=== PATIENT | female | born 1935 | race Caucasian/White ===

== ENCOUNTER → 2018-02-22 | Outpatient (REF) | payer MEDICARE, OTHER ==
[~2018-02-22] MED LIST: ACTONEL35 MG PO; ALENDRONATE70 MG PO; ASPIRIN LOW DOS81 M2 PO; CELEBREX200 MG PO; CYMBALTA30 MG PO; DYAZIDE1 CAP OR; DYAZIDE1 CAP PO; FLEXERIL OR; LIPITOR10 MG PO; NEXIUM10 MG PO; PERCOCET 5/325M1 TAB PO; SYNTHROID PO; SYNTHROID100 MCG PO; TENORMIN PO; TRIAM/HCTZ1 CAP PO
[2018-02-22 07:57] LABS: ALBUMIN 3.2 g/dL (3.2-5.0); ALKALINE PHOSPHATASE 129 u/l (38-126); ANION GAP 13 (6-22 (CALC)); BILIRUBIN, TOTAL 0.3 mg/dL (0.0-1.4); BUN 21 mg/dL (8-23); BUN/CREATININE RATIO 27 (12-20 (CALC)); CARBON DIOXIDE 27 mmol/l (22-30); CHLORIDE 108 mmol/l (95-108); CREATININE 0.8 mg/dL (0.5-1.0); GFR > 60 ML/MIN (>=60 (CALC)); GFR FOR AFR.AMER. > 60 ML/MIN (>=60 (CALC)); POTASSIUM 4.7 mmol/l (3.5-5.1); SGOT/AST 14 u/l (9-36); SODIUM 143 mmol/l (137-146); TOTAL PROTEIN 6.3 g/dL (6.3-8.2)
[2018-02-22 08:11] LABS: HEMATOCRIT 35.6 % (37.0-47.0); HEMOGLOBIN 10.9 g/dl (12.0-16.0); MEAN CELL VOLUME 88.6 fL CALC (80.0-100.0); MEAN CORPUSCULAR HGB 27.1 pG CALC (26.0-32.0); MEAN CORPUSCULAR HGB CONC 30.6 g/L CALC (32.0-36.0); RED BLOOD COUNT 4.02 mill/uL (4.20-5.60); RED CELL DISTRI WIDTH 15.4 % (11.5-15.5)
== END | disposition home or self-care (01) ==
LOC: CT 07:05
PROVIDERS: Internal Medicine; ATTEND Obstetrics & Gynecology
DX: N82.3 Fistula of vagina to large intestine (principal); M86.671 Other chronic osteomyelitis, right ankle and foot; L84 Corns and callosities; N28.9 Disorder of kidney and ureter, unspecified; R10.9 Unspecified abdominal pain; D63.8 Anemia in other chronic diseases classified elsewhere; R73.9 Hyperglycemia, unspecified

== ENCOUNTER 2018-03-29 05:36 | Observation (INO) | payer MEDICARE, OTHER ==
[~2018-03-29] VITALS: Ht 167.6 cm; Wt 90.7 kg
[2018-03-29] VITALS (11 sets, daily range): BP systolic 74–146; BP diastolic 16–69
[~2018-03-29 05:36] MED LIST changes: +AMOXICILLIN250 M1 PO; +DILAUDID4 MG PO; -LIPITOR10 MG PO; +LIPITOR20 MG PO; +MELOXICAM15 MG PO
[2018-03-29 14:19] LABS: HEMATOCRIT 29.2 % (37.0-47.0); HEMOGLOBIN 8.9 g/dl (12.0-16.0); IMMATURE GRANULOCYTES 0.2 % (0.0-5.0); MEAN CELL VOLUME 88.2 fL CALC (80.0-100.0); MEAN CORPUSCULAR HGB 26.9 pG CALC (26.0-32.0); MEAN CORPUSCULAR HGB CONC 30.5 g/L CALC (32.0-36.0); NEUT# 4.11 thou/uL (2.00-7.15); RED BLOOD COUNT 3.31 mill/uL (4.20-5.60); RED CELL DISTRI WIDTH 17.5 % (11.5-15.5)
[2018-03-29 14:35] LABS: BILIRUBIN, TOTAL 0.3 mg/dL (0.0-1.4); BUN 12 mg/dL (8-23); BUN/CREATININE RATIO 15 (12-20 (CALC)); CARBON DIOXIDE 24 mmol/l (22-30); CHLORIDE 110 mmol/l (95-108); CREATININE 0.8 mg/dL (0.5-1.0); GFR > 60 ML/MIN (>=60 (CALC)); GFR FOR AFR.AMER. > 60 ML/MIN (>=60 (CALC)); SGOT/AST 17 u/l (9-36); SODIUM 143 mmol/l (137-146)
[2018-03-29 14:37] LABS: ALBUMIN 2.3 g/dL (3.2-5.0); ALKALINE PHOSPHATASE 51 u/l (38-126); ANION GAP 12 (6-22 (CALC)); TOTAL PROTEIN 4.7 g/dL (6.3-8.2)
[2018-03-30 05:09] VITALS: BP 134/79
[2018-03-30 05:33] LABS: HEMOGLOBIN 10.2 g/dl (12.0-16.0); IMMATURE GRANULOCYTES 0.4 % (0.0-5.0); MEAN CELL VOLUME 88.5 fL CALC (80.0-100.0); MEAN CORPUSCULAR HGB 27.3 pG CALC (26.0-32.0); MEAN CORPUSCULAR HGB CONC 30.9 g/L CALC (32.0-36.0); NEUT# 2.11 thou/uL (2.00-7.15); RED BLOOD COUNT 3.73 mill/uL (4.20-5.60); RED CELL DISTRI WIDTH 17.8 % (11.5-15.5)
[2018-03-30 05:39] LABS: ALBUMIN 2.4 g/dL (3.2-5.0); ALKALINE PHOSPHATASE 62 u/l (38-126); ANION GAP 10 (6-22 (CALC)); BILIRUBIN, TOTAL 0.4 mg/dL (0.0-1.4); BUN 10 mg/dL (8-23); BUN/CREATININE RATIO 13 (12-20 (CALC)); CARBON DIOXIDE 23 mmol/l (22-30); CHLORIDE 114 mmol/l (95-108); CREATININE 0.8 mg/dL (0.5-1.0); GFR > 60 ML/MIN (>=60 (CALC)); GFR FOR AFR.AMER. > 60 ML/MIN (>=60 (CALC)); MAGNESIUM 1.7 mg/dL (1.6-2.3); POTASSIUM 3.1 mmol/l (3.5-5.1); SGOT/AST 19 u/l (9-36); SODIUM 144 mmol/l (137-146)
[2018-03-30 08:00] VITALS: BP 162/84
== END 2018-03-30 14:57 | disposition home or self-care (01) ==
LOC: ENDO 05:36 → MS2 08:35 → ORM 12:00 → ENDO 12:00 → MS2 03-30 14:57
PROVIDERS: ADMIT Surgery; ATTEND Internal Medicine Nephrology
PROC: 0DJD8ZZ Inspection of Lower Intestinal Tract, Via Natural or Artificial Opening Endoscopic (ICD-10-PCS; principal; 2018-03-29)
DX: N82.3 Fistula of vagina to large intestine (principal); Q43.8 Other specified congenital malformations of intestine; K57.30 Diverticulosis of large intestine without perforation or abscess without bleeding; E86.0 Dehydration; I95.9 Hypotension, unspecified; E03.9 Hypothyroidism, unspecified; I10 Essential (primary) hypertension; E78.5 Hyperlipidemia, unspecified; K21.9 Gastro-esophageal reflux disease without esophagitis; F41.9 Anxiety disorder, unspecified; M19.90 Unspecified osteoarthritis, unspecified site; Z86.010 Personal history of colon polyps; Z90.710 Acquired absence of both cervix and uterus; Z80.0 Family history of malignant neoplasm of digestive organs
CPT/HCPCS: J1650

== ENCOUNTER 2018-05-01 14:07 | Emergency (ER) | payer MEDICARE, OTHER ==
[~2018-05-01] VITALS: Ht 167.6 cm; Wt 90.9 kg
[2018-05-01] MEDS ORDERED: ALENDRONATE70 MG PO (14:35)
[2018-05-01] MEDS ORDERED: ACETAMINOPHEN325 MG PO (14:35)
[2018-05-01] MEDS ORDERED: LEVEMIR100 UNIT/M (14:36)
[2018-05-01] MEDS ORDERED: LASIX 40 MG40 MG/TAB PO (14:36)
[2018-05-01] MEDS ORDERED: OMEPRAZOLE20 M2 PO (14:37)
[2018-05-01] MEDS ORDERED: PANTOPRAZOLE SO40 MG PO (14:38)
[2018-05-01] MEDS ORDERED: ELIQUIS5 MG PO (14:38)
[2018-05-01] MEDS ORDERED: MILK OF MAG30 ML/UDC PO (14:39)
[2018-05-01] MEDS ORDERED: PEPTO-BISM524 MG/30 PO (14:40)
[2018-05-01] MEDS ORDERED: ZOFRAN ODT4 MG PO (14:40)
[2018-05-01 15:21] LABS: HEMATOCRIT 32.4 % (37.0-47.0); IMMATURE GRANULOCYTES 0.2 % (0.0-5.0); MEAN CELL VOLUME 92.6 fL CALC (80.0-100.0); MEAN CORPUSCULAR HGB 28.6 pG CALC (26.0-32.0); MEAN CORPUSCULAR HGB CONC 30.9 g/L CALC (32.0-36.0); NEUT# 10.44 thou/uL (2.00-7.15); RED BLOOD COUNT 3.5 mill/uL (4.20-5.60); RED CELL DISTRI WIDTH 19.7 % (11.5-15.5)
[2018-05-01 15:37] LABS: ALBUMIN 2.6 g/dL (3.2-5.0); ALKALINE PHOSPHATASE 84 u/l (38-126); BILIRUBIN, TOTAL 0.6 mg/dL (0.0-1.4); BUN 27 mg/dL (8-23); BUN/CREATININE RATIO 29 (12-20 (CALC)); CARBON DIOXIDE 29 mmol/l (22-30); CHLORIDE 102 mmol/l (95-108); CREATININE 0.9 mg/dL (0.5-1.0); GFR 60 ML/MIN (>=60 (CALC)); GFR FOR AFR.AMER. > 60 ML/MIN (>=60 (CALC)); LIPASE 67 u/l (23-300); SGOT/AST 22 u/l (9-36); SODIUM 139 mmol/l (137-146); TOTAL PROTEIN 5.3 g/dL (6.3-8.2)
[2018-05-01 15:38] LABS: ANION GAP 12 (6-22 (CALC)); POTASSIUM 4.3 mmol/l (3.5-5.1)
[2018-05-01 15:45] LABS: INTERNATIONAL NORMALIZED RATIO 1.1 RATIO (0.7-1.3); PROTHROMBIN TIME 11.6 SECONDS (9.0-12.5)
[2018-05-01 21:24] LABS: HEMOGLOBIN 9.4 g/dl (12.0-16.0)
[2018-05-01 22:20] VITALS: BP 120/60
== END 2018-05-01 22:22 ==
LOC: ED 14:07
PROVIDERS: Emergency Medicine; Family Medicine
PROC: 02HV33Z Insertion of Infusion Device into Superior Vena Cava, Percutaneous Approach (ICD-10-PCS; principal; 2018-05-01)
DX: J18.9 Pneumonia, unspecified organism (principal); R11.2 Nausea with vomiting, unspecified; R10.84 Generalized abdominal pain; Z93.3 Colostomy status; R18.8 Other ascites
CPT/HCPCS: J2354; S0164